=== PATIENT | male | born 1955 | race Caucasian/White ===

== ENCOUNTER → 2017-01-01 | Outpatient (CLI) | payer MEDICARE, BC ==
[~2017-01-01] MED LIST: ASPIRIN EC81 M1 PO; DILTIAZEM 24HR180 MG PO; NIASPAN1000 M2 PO; PLAQUENIL200 MG PO; VITAL-D RX TABL1 TAB PO
== END | disposition home or self-care (01) ==
LOC: CLAB 13:40
DX: C61 Malignant neoplasm of prostate (principal)
CPT/HCPCS: 36415; 84153